=== PATIENT | female | born 1975 | race Caucasian/White ===

== ENCOUNTER 2018-10-16 13:38 | Emergency (ER) | payer BC, OTHER ==
--- NOTE | 2018-10-16 13:53 | UC ---
Laceration HPI - HPI Summary HPI Summary: 43 yo female presents with LEFT knee laceration. 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 She bandaged the area and came to . She is unsure the date of her last tetanus. She is ambulatory with little pain. - History Of Current Complaint Stated Complaint: LT LEG LAC Time Seen by Provider: 10/16/18 13:53 Hx Obtained From: Patient Laceration Location: Leg Mechanism Of Injury: Blunt Trauma Onset/Duration: Sudden Onset Severity: Mild Pain Intensity: 2 Pain Scale Used: 0-10 Numeric - Allergies/Home Medications Allergies/Adverse Reactions: Allergies Allergy/AdvReac Type Severity Reaction Status Date / Time No Known Allergies Allergy Verified 10/16/18 14:05 PMH/Surg Hx/FS Hx/Imm Hx - Additional Past Medical History Additional PMH: None - Surgical History Surgical History: None - Family History Known Family History: Positive: Non-Contributory - Social History Occupation: Employed Full-time Lives: With Family Alcohol Use: Occasionally Substance Use Type: None Smoking Status (MU): Never Smoked Tobacco Review of Systems All Other Systems Reviewed And Are Negative: Yes Constitutional: Positive: Negative Skin: Positive: Other - Left knee laceration Respiratory: Positive: Negative Cardiovascular: Positive: Negative Neurovascular: Positive: Negative Neurological: Positive: Negative Psychological: Positive: Negative Physical Exam - Summary Physical Exam Summary: GENERAL: NAD. WDWN. No pain distress. SKIN: LEFT KNEE: Overlying patella tendon there is a 3.5cm horizontal linear laceration partially through the dermis. Scant gravel appearing debris within the tissue. No active bleeding. No tendon involvement CHEST: No accessory muscle use. Breathing comfortably and in no distress. CV: Pulses intact. Cap refill <2seconds MSK: LEFT KNEE: FROM strength 5/5 NEURO: Alert. PSYCH: Age appropriate behavior. Triage Information Reviewed: Yes Vital Signs: Vital Signs: Temp Pulse Resp BP Pulse Ox 99.1 F 68 18 138/86 99 10/16/18 14:01 10/16/18 14:01 10/16/18 14:01 10/16/18 14:01 10/16/18 14:01 Vital Signs Reviewed: Yes Laceration Repair - Laceration Repair 1 Description: Linear Laceration Size After Repair: Length (cm) - 3.5 Anesthesia Used: 2.0% Lido Irrigation With Pressure Irrigation Device: Yes Closure Material: Sutures - #5 Closure Method: Single Layer Suture Of: Skin Suture Type: Prolene - 4-0 Laceration Course/Dx - Course/Dx Course Of Treatment: The procedure was explained to the pt and all questions were answered. A time out was performed, witnessed, and signed. The area was irrigated with 250mL sterile saline. 2mL of 2% lidocaine without epi was administered and good anesthetization was achieved. I performed mild debridement of scattered 1-2mm gravel pieces within the wound. In the usual sterile fashion, FIVE 4-0 prolene interrupted sutures were placed. The wound was bandaged with xeroform and telfa . Pt tolerated procedure well. tdap updated today. Will place her on keflex for dirty wound. - Diagnosis Provider Diagnosis: Knee laceration Discharge - Sign-Out/Discharge Documenting (check all that apply): Patient Departure All imaging exams completed and their final reports reviewed: No Studies - Discharge Plan Condition: Stable Disposition: HOME Prescriptions: Cephalexin CAP* [Keflex CAP*] 500 mg PO TID #21 cap Patient Education Materials: Care For Your Stitches (ED), Laceration (ED) Forms: *Work Release Referrals: No Primary Care Phys,NOPCP [Primary Care Provider] - Additional Instructions: 1) Please keep the area bandaged, clean, dry, and intact for the next 24- 48hours and then keep covered daily with a bandaged until sutures are removed. 2) If you develop a fever, colored or thick discharge, increased pain or swelling - please call your PCP or return for a wound check. 3) Please return in 10 days to have your FIVE sutures removed. - Billing Disposition and Condition Condition: STABLE Disposition: Home - Attestation Statements Provider Attestation: I am administratively signing this document. I was available for consultation for this patient. I did not evaluate the patient, did not have a doctor/patient relationship with the patient, or participate in any medical decision making or disposition decisions unless I am specifically named in the chart as having consulted on the patient. If I have consulted on the patient, please see my own ED note on the patient encounter. Gomez Hernandez MD
[2018-10-16] MEDS ORDERED: Lidocaine 2% PF * 5 ML VIAL INJ ONE (13:56)
[2018-10-16] MEDS ORDERED: Tetan/Diph/Pertus SYR(Tdap)* 0.5 ML SYR(BOOSTRIX) use SYR IM ONE (13:56)
[2018-10-16 14:05] VITALS: BP 138/86
== END 2018-10-16 15:14 | disposition home or self-care (01) ==
LOC: UCEAST 13:38
DX: S81.012A Laceration without foreign body, left knee, initial encounter (principal); W18.30XA Fall on same level, unspecified, initial encounter; Y93.89 Activity, other specified; Y92.410 Unspecified street and highway as the place of occurrence of the external cause; Y99.0 Civilian activity done for income or pay
CPT/HCPCS: 12002; 90471; 90715; 99202; G0463

== ENCOUNTER 2018-10-27 18:19 | Emergency (ER) | payer OTHER ==
[2018-10-27 18:31] VITALS: BP 128/80
--- NOTE | 2018-10-27 18:41 | UC ---
HPI Wound/Suture Re-check - HPI Summary HPI Summary: 43-year-old female presents for suture removal. Patient was initially seen at this facility on 10/16/2018 for a laceration to her left anterior knee after a mechanical fall to the ground. Patient had 5 interrupted sutures placed at that time and was placed on prophylactic cephalexin which she states she completed. Denies pain, erythema, edema, or drainage. - History Of Current Complaint Chief Complaint: [place] Stated Complaint: SUTURE REMOVAL Time Seen by Provider: 10/27/18 18:28 Hx Obtained From: Patient Hx Last Menstrual Period: 10/09/18 Pain Intensity: 0 - Allergies/Home Medications Allergies/Adverse Reactions: Allergies Allergy/AdvReac Type Severity Reaction Status Date / Time No Known Allergies Allergy Verified 10/27/18 18:31 Home Medications: Home Medications NK [No Home Medications Reported] 10/27/18 [History Confirmed 10/27/18] PMH/Surg Hx/FS Hx/Imm Hx Previously Healthy: Yes - Denies significant PMH - Surgical History Surgical History: None Surgery Procedure, Year, and Place: tubal - Family History Known Family History: Positive: Non-Contributory - Social History Occupation: Employed Full-time Lives: With Family Alcohol Use: Occasionally Substance Use Type: None Smoking Status (MU): Never Smoked Tobacco Review of Systems All Other Systems Reviewed And Are Negative: Yes Constitutional: Negative: Fever, Chills Skin: Positive: Other - See HPI Respiratory: Positive: Negative Cardiovascular: Positive: Negative Gastrointestinal: Positive: Negative Genitourinary: Positive: Negative Musculoskeletal: Positive: Negative Neurological: Positive: Negative Is Patient Immunocompromised?: No Physical Exam - Summary Physical Exam Summary: GENERAL APPEARANCE: Well developed, well nourished, alert and cooperative, and appears to be in no acute distress. CARDIAC: Normal S1 and S2. No S3, S4 or murmurs. Rhythm is regular. There is no peripheral edema, cyanosis or pallor. Extremities are warm and well perfused. Capillary refill is less than 2 seconds. Peripheral pulses intact. LUNGS: Clear to auscultation without rales, rhonchi, wheezing or diminished breath sounds. ABDOMEN: Positive bowel sounds. Soft, nondistended, nontender. No guarding or rebound. No masses or hepatosplenomegally. MUSKULOSKELETAL: ROM intact to all extremities. No joint erythema or tenderness. Normal muscular development. Normal gait. SKIN: Skin normal color, texture and turgor. Well approximated healing linear laceration to the anterior left knee with 5 interrupted sutures intact. No erythema, edema, or drainage. Triage Information Reviewed: Yes Vital Signs: Initial Vital Signs Temp 99.1 F 10/27/18 18:28 Pulse 81 10/27/18 18:28 Resp 16 10/27/18 18:28 BP 128/80 10/27/18 18:28 Pulse Ox 98 10/27/18 18:28 Vital Signs Reviewed: Yes Course/Dx - Course Course Of Treatment: 43-year-old female presents for suture removal. Patient was initially seen at this facility on 10/16/2018 for a laceration to her left anterior knee after a mechanical fall to the ground. Patient had 5 interrupted sutures placed at that time and was placed on prophylactic cephalexin which she states she completed. Denies pain, erythema, edema, or drainage. Afebrile. Vital signs stable. Patient had a well approximated healing linear laceration to the anterior left knee with 5 interrupted sutures intact. No erythema, edema, or drainage was noted. The sutures were removed without complication. Reviewed wound care and scar reduction instructions with the patient. She is to return if she develops any signs or symptoms of infection. Verbalizes understanding and agrees with plan of care. - Differential Dx - Laceration/Wound Differential Diagnoses: Healing Wound - Diagnosis Provider Diagnosis: Laceration of left knee, Encounter for removal of sutures Discharge - Sign-Out/Discharge Documenting (check all that apply): Patient Departure All imaging exams completed and their final reports reviewed: No Studies - Discharge Plan Condition: Stable Disposition: HOME Patient Education Materials: Laceration (ED) Referrals: No Primary Care Phys,NOPCP [Primary Care Provider] - Additional Instructions: Your laceration appears to be healing well. The sutures were removed without complication. Continue to keep the wound clean using a mild soap and water. Try to avoid sun exposure for 6-9 months to avoid discoloration of the scar tissue. Apply a sunscreen with an spf 30 to help protect the wound. Watch for signs of infection including fever greater than 100.5 F, severe pain not managed with pain medication, redness that spreads, swelling of the hand/ fingers, or pus draining from the wound. Seek immediate medical attention should any of these occur. - Billing Disposition and Condition Condition: STABLE Disposition: Home
== END 2018-10-27 18:50 | disposition home or self-care (01) ==
LOC: UCEAST 18:19
DX: S81.012D Laceration without foreign body, left knee, subsequent encounter (principal); W18.30XD Fall on same level, unspecified, subsequent encounter